=== PATIENT | male | born 1975 | race Two or more races ===

== ENCOUNTER 2024-12-08 18:30 | Emergency (ER) | payer MEDICAID, SELFPAY ==
[2024-12-08 19:11] VITALS: BP 214/93; BP 230/99; PULSE 56; RESP 18; TEMP 37; O2SAT 97; BMI 31.4
--- NOTE | 2024-12-08 19:20 | XR_ITS ---
Examination: CT brain head without contrast. 2-D sagittal coronal reconstructions Date and time of exam: December 08, 2024, 1931 hours INDICATIONS: High blood pressure with headache today CTDI: vol (mGy): 48.1 DLP: (mGycm): 946 Technique: Multiple CT axial sections of the brain have been obtained, 5 mm slice thickness. Contrast has not been administered. 2-D sagittal, coronal reconstructions have been obtained Low dose protocols were performed. One or more of the following dose reduction techniques were used; automated exposure control, adjustment of the mA and/or KV according to patient size, use of iterative reconstruction technique. Findings: No significant ventricular enlargement. Intra-axial or extra-axial hemorrhage density is not seen. No mass effect or midline shift Basal cisterns are not remarkable. Fourth ventricle is midline. Cranial vault intact. Impression: Negative for acute hemorrhage, mass effect or midline shift
--- NOTE | 2024-12-08 19:21 | PD.EDRME ---
Rapid Medical Screening Exam [facility] Arrival date/time: 12/08/24 18:30 49M with history of HTN and DM presents to ED with 1 day of ARVIZU and high BP. No CP or SOB. Chief Complaint: General Adult/Misc Complain Vital signs: Vital Signs Temperature 98.6 F 12/08/24 19:11 Pulse Rate 56 L 12/08/24 19:11 Respiratory Rate 18 12/08/24 19:11 Blood Pressure 214/93 H 12/08/24 19:11 Pulse Oximetry (%) 97 12/08/24 19:11 Oxygen Delivery Method Room Air 12/08/24 19:11
[2024-12-08 19:42] VITALS: BP 214/93; PULSE 56
[2024-12-08 21:20] VITALS: BP 178/90; PULSE 64; RESP 18; TEMP 36.7; O2SAT 99
--- NOTE | 2024-12-08 22:45 | PD.EDADULT ---
ED General RME/HPI General Chief complaint: General Adult/Misc Complain Stated complaint: HIGH BP 215/95 Time Seen by Provider: 12/08/24 22:36 Arrival date/time: 12/08/24 18:30 CC: Headache hypertension HPI patient presents to the ER via POV for hypertension and headache, the patient states he took 3 of his 40 lisinopril's today without any reduction in his high blood pressure patient denies chest pain shortness of breath or difficulty breathing. Patient assessed at 2246, and states that his headache is at a minimum he did not take any ibuprofen or Tylenol in the interim. Patient is awake alert oriented no other complaints RME / HPI RME / HPI narrative: 12/08/24 18:30 49M with history of HTN and DM presents to ED with 1 day of ARVIZU and high BP. No CP or SOB. Related Data Previous Rx's ?Medication ?Instructions ?Recorded lisinopril 20 mg tablet 20 mg PO QDAY ##30 12/05/11 lisinopril 20 mg tablet 20 mg PO QDAY #30 tabs 03/17/15 lisinopril 20 mg tablet 20 mg PO QDAY #30 tabs 01/07/21 metformin 850 mg tablet 850 mg PO BID #60 tabs 01/07/21 Allergies Allergy/AdvReac Type Severity Reaction Status Date / Time No Known Allergies Allergy Verified 12/08/24 18:35 Review of Systems Review of Systems Narrative Review of Systems: GEN: No fever, no chills, no weight loss EYES: No discharge, no visual changes, no pain HEENT: No ear pain, no congestion, no sore throat PULM: No shortness of breath, no cough, no congestion CV: No chest pain, no dyspnea on exertion, no palpitations GI: No nausea, no vomiting, no diarrhea, no pain, no constipation : No frequency, no urgency, no dysuria MUSC/SKEL: No joint pain, no back pain SKIN: No rash PSYCH: No hallucinations, no depression HEME/LYMPH: No easy bleeding or bruising tendencies NEURO: No weakness, no headache ED Exam Narrative Physical exam: [General: Obese not in any acute distress Head normocephalic HEENT: Eyes pupils are PERRLA EOMs are intact mouth pink moist membranes uvula is midline swallow symmetrical phonation is normal. Within acceptable limits Neck is supple nontender Chest equal chest rise nontender to palpation Respiratory: Clear to auscultation no wheezes crackles or rubs CV: Rate rhythm is regular no murmurs rubs or clicks Abdomen is soft nontender no masses positive bowel sounds all 4 quadrants Back: No CVA tenderness no spinous process tenderness from cervical spine thoracic and lumbar spine Skin: Intact no petechiae rash induration ulceration or crepitus Extremities: Moving all extremities against resistance cap refill less than 2 seconds neurosensory intact Neuro: Awake alert oriented x3 Glascow coma 15 no focal deficits] Course Quality Measures none Orders Category Date Time Status CT head/brain wo con Stat Exams 12/08/24 19:20 Completed Acetaminophen Tab [Tylenol Tab] Med 12/08/24 22:45 Discontinued 650 mg PO X1 ONE cloNIDine HCL [Catapres] Med 12/08/24 22:44 Discontinued 0.1 mg PO X1 ONE hydrALAZINE HCL [Apresoline] Med 12/08/24 19:20 Discontinued 50 mg PO X1 ONE Vital Signs Vital signs: Vital Signs Temperature 98.6 F 12/08/24 19:11 Pulse Rate 56 L 12/08/24 19:11 Respiratory Rate 18 12/08/24 19:11 Blood Pressure 214/93 H 12/08/24 19:11 Pulse Oximetry (%) 97 12/08/24 19:11 Oxygen Delivery Method Room Air 12/08/24 19:11 Discharge Plan Plan Patient Disposition: HOME (Self Care) Patient condition on transfer: Stable Prescriptions/Referrals Prescriptions/Med Rec: No Action lisinopril 20 MG tablet 20 mg PO QDAY Qty: 30 0RF lisinopril 20 MG tablet 20 mg PO QDAY Qty: 30 0RF lisinopril 20 mg tablet 20 mg PO QDAY Qty: 30 0RF metformin 850 mg tablet 850 mg PO BID Qty: 60 0RF Referrals: Dc Jernigan MD [Primary Care Provider, Family Practice] - In 1 week Problem List Clinical Impression: Hypertension, Headache Patient/Caregiver Discharge Instructions Education Materials: ED High Blood Pressure ... Additional Instructions: Follow-up with your primary care doctor monitor your blood pressure regularly and give them the results, there may need to adjust your medications. Please cut back on salt in your diet. Print Language: Japanese Stand Alone Forms: Marguerite Award Info., Work/School Release, Patient Portal Info Letter PA/TRANSPORT ANALYST Supervising Physician ASHKAN Supervising Physician: Kris Maynard Enp MDM Clinical Information Provided by: patient Medical Records reviewed [facility] Meds/Rx considered, not ordered None Chronic Illness/Social Conditions Explain: Hypertension EKG EKG not done Labs Labs: none Imaging Imaging interpretation: interpreted by me Imaging Interpretation(s): CT head negative for any acute finding. Medication Administration(s) Medication Administration History Discontinued Medications Acetaminophen (Acetaminophen 325 Mg Tablet) 650 mg PO X1 ONE Stop: 12/08/24 22:46 Last Admin: 12/08/24 22:52 Dose: 650 mg Documented By: FAN Clonidine (Clonidine Hcl 0.1 Mg Tablet) 0.1 mg PO X1 ONE Stop: 12/08/24 22:45 Last Admin: 12/08/24 22:51 Dose: 0.1 mg Documented By: FAN Hydralazine HCl (Hydralazine Hcl 25 Mg Tablet) 50 mg PO X1 ONE Stop: 12/08/24 19:21 Last Admin: 12/08/24 19:42 Dose: 50 mg Documented By: FOREST Diagnosis Differential Diagnosis ED Complaint MDM: Hypertension hypertensive urgency hypertensive emergency
[2024-12-08 22:51] VITALS: BP 189/90; PULSE 52
[2024-12-08] MEDS: ACETAMINOPHEN 325 MG TABLET 650 MG PO (22:52)
[2024-12-09 00:01] VITALS: BP 182/89; PULSE 52
== END 2024-12-09 00:02 | disposition home or self-care (01) ==
PROVIDERS: Emergency Provider Emergency Medicine; PCP Family Medicine
DX: I10 Essential (primary) hypertension (principal); R51.9 Headache, unspecified
CPT/HCPCS: 70450; 99283; A9270

== ENCOUNTER 2025-01-09 08:49 | Emergency (ER) | payer MEDICAID, SELFPAY ==
--- NOTE | 2025-01-09 | XR_ITS ---
Examination: MRI brain without intravenous contrast. Date and time of exam: January 09, 2025, 1456 hours INDICATIONS: Onset high blood pressure with headaches and vertigo beginning 1 month ago Technique: Multiple axial and sagittal images of the brain obtained. Siemens high-resolution 1.5 Stacia short bore scanners utilized. Sagittal sections, T1-weighted, TR 500, TE 14, are performed. Axial sections proton-density and T2-weighted have been obtained. Inversion recovery axial images, TR 9, 260, TE 111, TI 2500. Diffusion weighted images, axial sections, TR 4800, TE 128, B value 1000 Axial sections, ADC map, TR 4800, TE 128 Findings: Enlargement of the sella turcica is not present. The optic chiasm and infundibular are not remarkable. Prepontine and interpeduncular cisterns are not enlarged. There is no localized enlargement of the medulla or elizabeth. Fourth ventricle and cerebellar tonsils appear normal in position. No subacute area of hemorrhage density is seen. Mass in the cerebellopontine angle region is not evident. Globes symmetrical. Orbital musculature including medial lateral rectus muscles do not exhibit abnormality. Diffusion-weighted images demonstrate no focus of restricted diffusion. Increased white matter signal evident, punctate foci of increased signal in the frontal and parietal white matter Mass effect upon the ventricular system is not identified. Impression: Negative for acute hemorrhage mass effect or midline shift No acute infarct Multiple punctate foci of increased signal in the frontal parietal white matter, demyelinating disease pattern
[2025-01-09 10:09] VITALS: BP 152/82; PULSE 72; RESP 16; TEMP 37.2; O2SAT 96; BMI 30.1
--- NOTE | 2025-01-09 10:14 | EKG_ITS ---
[facility] Test Date: 2025-01-09 Pat Name: RITA LOTT Department: Room: - Gender: Male Ink Maker: : 1975 Requested By: David Coughlin Order Number: [id number] Reading MD: David Coughlin Measurements Intervals [place] Rate: 64 P: 35 [place]: 173 QRS: 72 QRSD: 118 T: 32 QT: 396 QTc: 411 Interpretive Statements SINUS RHYTHM POSSIBLE LEFT ATRIAL ENLARGEMENT [-0.1mV P-WAVE IN V1/V2] MODERATE INTRAVENTRICULAR CONDUCTION DELAY [110+ ms QRS DURATION] NONSPECIFIC ST & T-WAVE ABNORMALITY No previous ECG available for comparison /[id number]/[email or web address]/[id number]/[id number].pdf
--- NOTE | 2025-01-09 10:16 | PD.EDRME ---
Rapid Medical Screening Exam [facility]ME Arrival date/time: 01/09/25 08:49 Chief Complaint: Headache Vital signs: Vital Signs Temperature 99.0 F 01/09/25 10:09 Pulse Rate 72 01/09/25 10:09 Respiratory Rate 16 01/09/25 10:09 Blood Pressure 152/82 H 01/09/25 10:09 Pulse Oximetry (%) 96 01/09/25 10:09 Oxygen Delivery Method Room Air 01/09/25 10:09 RME Narrative: 49-year-old male presents to the ER complaining of vertigo which has been persistent despite taking meclizine associate with a headache x 1 month. I briefly performed a screening evaluation to initiate work-up and expedite care. Complete history, physical exam, and plan of care is deferred to the provider in the main ED. Exam: Head: Normocephalic, atraumatic. Respiratory: Normal effort. No respiratory distress or accessory muscle use. Neuro: Speech normal. Skin: Warm, dry, normal color. Psych: Pleasant. Normal affect. Cooperative. Clinical Impression: Vertigo and headache
[2025-01-09 10:45] LABS: Basophils # (Auto) 0.1 Thou/mm3 (0.0-0.2); Basophils % (Auto) 1 % (0-2.5); Eosinophils # (Auto) 0.1 Thou/mm3 (0.0-0.5); Eosinophils % (Auto) 1 % (0-10); Hematocrit 39.9 % (41.0-53.0); Hemoglobin 11.6 g/dL (13.5-16.0); Immature Granulocytes Auto 0.01 Thou/mm3 (0.00-0.00); Lymphocytes # (Auto) 1.9 Thou/mm3 (1.0-4.8); Lymphocytes % (Auto) 25 % (10-50); Mean Corpuscular HGB Conc 29.1 g/dl (31.0-37.0); Mean Corpuscular Hemoglobin 20.1 pg (25.0-35.0); Mean Corpuscular Volume 69 fL (80-100); Monocytes # (Auto) 0.5 Thou/mm3 (0.0-0.8); Monocytes % (Auto) 7 % (0-12); Neutrophils # (Auto) 4.8 Thou/mm3 (1.8-7.7); Neutrophils % (Auto) 66 % (37-80); Nucleated Red Blood Cell # 0.00 Thou/mm3 (0.00-0.00); Nucleated Red Blood Cell % 0 /100 WBC (0); Platelet Count 198 Thou/mm3 (140-440); RDW Standard Deviation 45.3 fL (35.1-43.9); Red Blood Count 5.76 Miln/mm3 (4.50-5.90); White Blood Count 7.3 Thou/mm3 (3.8-10.6)
[2025-01-09 11:18] LABS: Alanine Aminotransferase 22 U/L (10-49); Albumin, Serum 5.2 gm/dL (3.5-5.0); Albumin/Globulin Ratio 1.9 (1.2-2.2); Alkaline Phosphatase 65 U/L (46-116); Anion Gap 10 (7-16); Aspartate Amino Transferase 21 U/L (0-34); BUN/Creatinine Ratio 15 Ratio (12-20); Bilirubin,Total 0.5 mg/dL (0.3-1.2); Blood Urea Nitrogen 16 mg/dL (9-23); Calcium 9.8 mg/dL (8.3-10.6); Calcium (Corrected) 9.8 mg/dL (8.5-10.1); Carbon Dioxide 27.9 mMol/L (20.0-31.0); Chloride 102 mMol/L (98-107); Creatinine (Component) 1.1 mg/dL (0.6-1.3); Estimated Creatinine Clearance 76.5 mL/min (>60); Globulin 2.8 gm/dL (2.3-3.5); Glucose 97 mg/dL (74-106); Osmolality,Calculated 280 (275-295); Potassium 4.2 mMol/L (3.4-5.1); Sodium 140 mMol/L (136-145); Total Protein 8.0 gm/dL (5.7-8.2); Troponin I < 0.002 ng/mL (0.0-0.045); eGFR > 60 See Note
[2025-01-09 16:08] VITALS: BP 143/75; PULSE 63; RESP 18; TEMP 36.9; O2SAT 96
--- NOTE | 2025-01-09 16:26 | EDNOTE_ITS ---
ED Headache RME/HPI General Chief Complaint: Headache Stated Complaint: HEADACHE X 1 WEEK Time Seen by Provider: 01/09/25 16:08 Arrival date/time: 01/09/25 08:49 49-year-old male patient with significant history of diabetes hypertension, came in for evaluation regarding headache been having headache for the last 2 weeks, described as pulsating severity moderate. Denies any fall fever or neck pain upper or lower extremity focal neurologic deficit. Patient is ambulatory. Patient was seen here last week and CT scan of the head came back unremarkable. Patient been taking ibuprofen with no relief. RME / HPI RME / HPI Narrative: 49-year-old male presents to the ER complaining of vertigo which has been persistent despite taking meclizine associate with a headache x 1 month. I briefly performed a screening evaluation to initiate work-up and expedite care. Complete history, physical exam, and plan of care is deferred to the provider in the main ED. Exam: Head: Normocephalic, atraumatic. Respiratory: Normal effort. No respiratory distress or accessory muscle use. Neuro: Speech normal. Skin: Warm, dry, normal color. Psych: Pleasant. Normal affect. Cooperative. Impression: Vertigo and headache Related Data Previous Rx's ?Medication ?Instructions ?Recorded lisinopril 20 mg tablet 20 mg PO QDAY ##30 12/05/11 lisinopril 20 mg tablet 20 mg PO QDAY #30 tabs 03/17 lisinopril 20 mg tablet 20 mg PO QDAY #30 tabs 01/07 metformin 850 mg tablet 850 mg PO BID #60 tabs 01/07 rizatriptan 10 mg tablet (Maxalt) 10 mg PO Q2H PRN carmita kra headache 01/09/25 #30 tabs Allergies Allergy/AdvReac Type Severity Reaction Status Date / Time No Known Allergies Allergy Verified 01/09/25 08:52 Review of Systems Review of Systems Narrative Review of Systems: Review of system reviewed and within normal limits except mentioned in HPI ED Exam Narrative Physical exam: VITAL SIGNS: Reviewed. GENERAL APPEARANCE: Alert and interactive, follows commands, no acute distress, HEAD AND FACE: Non-traumatic. ENT: PERRL, pink conjunctivitis, eyelid no trauma, Mucous membrane moist. NECK: Supple, nontender, no nuchal rigidity. CHEST: No tenderness, no crepitus, no paradoxical movement, no retractions. LUNGS: Clear, well ventilated, symmetric, no rales, no wheezing, no ronchi, no stridor, good breath sounds bilaterally. HEART: Regular rate, regular rhythm, no murmur, no gallops. ABDOMEN: Soft, positive bowel sounds, nondistended, no guarding, nontender, no rebound, no masses, RECTAL: Deferred. GENITAL: Deferred. NEUROLOGICAL: Gross motor function intact sensory function intact, Appropriate for age. MUSCULOSKELETAL: low back nontender, full range of motion. EXTREMITIES: Nontender, full range of motion. SKIN: Color pink, dry, no rash, no lacerations, no abrasions, no contusions. LYMPHATICS: Deferred. Course Quality Measures none Orders Category Date Time Status EKG (ED ONLY) *Do not use* NOW Care 01/09/25 10:15 Completed MRI Screening NOW Care 01/09/25 10:15 Active MRI Screening NOW Care 01/09/25 10:16 Completed EKG (ED Only) Stat Exams 01/09/25 10:14 Draft MR head/brain wo con Stat Exams 01/09/25 Completed CBC Stat Lab 01/09/25 10:34 Completed CMP [Comprehensive Metabolic Panel] Stat Lab 01/09/25 10:34 Completed Troponin I Stat Lab 01/09/25 10:34 Completed Ketorolac Inj [Toradol Inj] Med 01/09/25 16:26 Once 30 mg IM X1 ONE Vital Signs Vital signs: Vital Signs Temperature 99.0 F 01/09/25 10:09 Pulse Rate 72 01/09/25 10:09 Respiratory Rate 16 01/09/25 10:09 Blood Pressure 152/82 H 01/09/25 10:09 Pulse Oximetry (%) 96 01/09/25 10:09 Oxygen Delivery Method Room Air 01/09/25 10:09 Headache MDM Narrative MDM Narrative:: 49-year-old male patient with significant history of diabetes hypertension, came in for evaluation regarding headache been having headache for the last 2 weeks, described as pulsating severity moderate. Denies any fall fever or neck pain upper or lower extremity focal neurologic deficit. Patient is ambulatory. Patient was seen here last week and CT scan of the head came back unremarkable. Patient been taking ibuprofen with no relief. MRI of the brain showed no acute pathology except for possible demyelinating disease. Results discussed with the patient. Advised the patient to follow-up closely with PCP. Patient EKG as interpreted by me showed sinus rhythm, ventricular rate of 64 bpm, no ST segment elevation or depression noted. Was given Toradol with complete resolution of headache. Stable for discharge home Patient data External records reviewed:: None Clinical information provided by:: patient Social determinants that could affect healthcare access:: none Patient has the following chronic illnesses:: Hypertension diabetes How is presenting disease/condition affected by chronic disease/condition?: exacerbated by Evaluation data The following diagnostics were reviewed and interpreted by me:: radiology exam(s) Lab and/or radiology exams considered but not ordered:: None Interpretation Summary: See above Medications / Prescriptions Medications or Prescriptions considered but not ordered:: None Medication administrations:: Toradol IM Consultations Consultation(s) initiated? (list below): No Diagnosis Differential diagnosis headache: migraine, tension headache and sinusitis Most likely diagnosis given after review of the tests above:: Migraine headache Admission Indicated Admission indicated?: not indicated Admission Request Was there a request for admission?: No Disposition Plan Disposition Plan: Discharge Discharge Attestation Discharge Attestation: The patient was given an opportunity to ask questions and understood the discharge instructions. Discharge instructions specifically effects, indications for sooner follow up or return to the emergency department, and the expected course of current diagnosis. Patient condition: Stable Discharge Plan Plan Patient Disposition: HOME (Self Care) Discharge Disposition comment: Stable Prescriptions/Referrals Prescriptions/Med Rec: New rizatriptan [Maxalt] 10 mg tablet 10 mg PO Q2H PRN (Reason: migraine headache) Qty: 30 0RF Rx Instructions: do not exceed 3 doses per 24 hrs No Action lisinopril 20 MG tablet 20 mg PO QDAY Qty: 30 0RF lisinopril 20 MG tablet 20 mg PO QDAY Qty: 30 0RF lisinopril 20 mg tablet 20 mg PO QDAY Qty: 30 0RF metformin 850 mg tablet 850 mg PO BID Qty: 60 0RF Referrals: Dc Jernigan MD [Primary Care Provider, Family Practice] - In 1 week Problem List Clinical Impression: Headache Patient/Caregiver Discharge Instructions Discharge Activity: activity as tolerated Education Materials: Self-Care for Headaches Additional Instructions: Thank you for the opportunity for serving you today. You are stable for discharged . You are advised to: Follow-up with your PCP in 1 to 2 days Return to ED for worsening of symptoms Increase oral fluids Take medication as prescribed Print Language: Belarusian Stand Alone Forms: Marguerite Award Info., Patient Portal Info Letter PA/ASSEMBLER CLIP ON [employer] Supervising Physician KWAME/STEPHEN Supervising Physician: MD Lia
[2025-01-09] MEDS: KETOROLAC INJ 30 MG/ML VIAL IM (16:32)
[2025-01-09 16:59] LABS: Path Review Blood Smear Sent to Pathologist
[2025-01-09 17:23] VITALS: PULSE 50; RESP 18
== END 2025-01-09 17:27 | disposition home or self-care (01) ==
PROVIDERS: Physician Assistant; Emergency Provider Family Medicine; PCP Family Medicine
DX: G43.909 Migraine, unspecified, not intractable, without status migrainosus (principal); E11.9 Type 2 diabetes mellitus without complications; I10 Essential (primary) hypertension; Z79.84 Long term (current) use of oral hypoglycemic drugs
CPT/HCPCS: 36415; 70551; 80053; 84484; 85025; 93005; 96372; 99283; J1885